=== PATIENT | female | born 2005 | race Two or more races ===

== ENCOUNTER 2024-01-27 09:41 | Emergency (ER) | payer OTHER ==
[~2024-01-27] VITALS: Ht 160 cm; Wt 55.3 kg
[2024-01-27 11:12] LABS: HEMATOCRIT 37.2 % (36.0-45.00); HEMOGLOBIN 12.7 g/dL (12.0-15.00); MEAN CELL VOLUME 88.5 fL (80.00-100.00); MEAN CORPUSCULAR HEMOGLOBIN 30.1 pg (27.00-32.0); PLATELET COUNT 343 K/uL (150-450); RED BLOOD COUNT 4.21 M/uL (4.00-6.00); RED CELL DISTRIBUTION WIDTH 12.9 % (11.5-14.5)
[2024-01-27 12:57] LABS: PH,URINE 6.5 (5.0-8.0); URINE APPEARANCE Clear; URINE BILIRRUBIN Negative (NEGATIVE); URINE BLOOD Negative; URINE COLOR Yellow; URINE GLUCOSE Negative (NEGATIVE); URINE KETONE Negative (NEGATIVE); URINE LEUKOCYTE Negative; URINE NITRATE Negative; URINE PROTEIN Negative (NEGATIVE); URINE UROBILINOGEN 0.2 E.U./dl
[2024-01-27 13:02] LABS: URINE BACTERIA 216.6 uL (0.0-1933); URINE EPITHELIAL CELLS 7.5 uL (0.0-38.8)
[2024-01-27 13:25] LABS: URINE CRYSTALS MODERATE /HPF; URINE RBC 1.6 uL (0.0-20.8)
== END 2024-01-27 14:45 | disposition home or self-care (01) ==
LOC: ER 09:42 → EMR PED 09:59 → ER 09:59 → EMR PED 14:45
PROVIDERS: Emergency Medicine Pediatric Emergency Medicine
DX: R50.9 Fever, unspecified (principal); R52 Pain, unspecified; Z20.822 Contact with and (suspected) exposure to COVID-19; Z91.013 Allergy to seafood

== ENCOUNTER → 2025-02-24 15:30 | Outpatient (CLI) | payer OTHER | END | disposition home or self-care (01) | LOC: PRENATAL 15:30 | PROVIDERS: ATTEND Obstetrics & Gynecology Maternal & Fetal Medicine | DX: O44.00 Complete placenta previa NOS or without hemorrhage, unspecified trimester (principal); Z3A.19 19 weeks gestation of pregnancy ==

== ENCOUNTER 2025-03-09 13:18 | Outpatient (CLI) | payer OTHER ==
[~2025-03-09] VITALS: Ht 160 cm; Wt 56.7 kg
[2025-03-09 12:54] VITALS: BP 108/66
[2025-03-09] MEDS ORDERED: RINGERS SOLUTION,LACTATED 1,000 ML IV SCH (13:30)
[2025-03-09] MEDS ORDERED: PRENATAL TABLE1 EAC1 PO (14:00)
[2025-03-09 14:09] LABS: BASO % 0.4 % (0.1-1.2); EOS # 0.29 (0.04-0.54); EOS % 2.7 % (0.7-7.0); LYMPH # 1.76 (1.18-3.74); LYMPH % 16.3 % (19.3-53.1); MEAN PLATELET VOLUME 9.30 fl (9.4-12.4); MONO # 0.97 (0.24-0.82); MONO % 9.0 % (4.7-12.5); NEUT # 7.54 (1.56-6.13); NEUT % 70.0 % (34.0-71.1); RED CELL DISTRIBUTION WIDTH 12.8 % (11.6-14.4)
[2025-03-09 14:17] LABS: URINE APPEARANCE Clear; URINE BILIRRUBIN Negative (NEGATIVE); URINE BLOOD Negative; URINE COLOR Yellow; URINE GLUCOSE Negative (NEGATIVE); URINE KETONE Negative (NEGATIVE); URINE LEUKOCYTE Trace; URINE NITRATE Negative; URINE PROTEIN Negative (NEGATIVE); URINE UROBILINOGEN 1.0 E.U./dl
[2025-03-09 14:18] LABS: URINE BACTERIA 1091.7 uL (0.0-1933); URINE EPITHELIAL CELLS 9.6 uL (0.0-38.8); URINE RBC 4.5 uL (0.0-20.8); URINE WBC 10.7 uL (0.0-23.2)
[2025-03-09 14:27] LABS: URINE CAST 0.00 uL (0.0-1.40)
[2025-03-09 15:09] VITALS: BP 104/64
[2025-03-09 20:11] VITALS: BP 99/61
[2025-03-09 22:43] VITALS: BP 99/61
== END 2025-03-09 22:43 | disposition home or self-care (01) ==
LOC: OBS/DEL 13:18
PROVIDERS: ATTEND Obstetrics & Gynecology
DX: O26.892 Other specified pregnancy related conditions, second trimester (principal); O26.842 Uterine size-date discrepancy, second trimester; Z14.8 Genetic carrier of other disease; Z3A.21 21 weeks gestation of pregnancy